=== PATIENT | female | born 1950 ===

== ENCOUNTER 2025-01-23 19:04 | Emergency (ER) | payer MEDICARE, OTHER ==
[2025-01-23] MEDS: Lidocaine 1% 30 ML SDV INJECT ONE (19:58)
[2025-01-23] MEDS: Bacitracin Oint 1 GM U/D Packet TOP ONE (21:25)
[2025-01-23] MEDS: Acetaminophen 500 MG Tab PO ONE (21:25)
[2025-01-23] MEDS: Diphtheria,Pertussis(Acell),Tetanus Vaccine 0.5 ML Syringe IM ONE (22:33)
[2025-01-23 22:37] VITALS: BP 139/75; PULSE 80
== END 2025-01-23 22:03 | disposition hospice, home (50) ==
LOC: DL.ED 19:04
DX: S01.01XA Laceration without foreign body of scalp, initial encounter (principal); S01.81XA Laceration without foreign body of other part of head, initial encounter; S06.30AA Unspecified focal traumatic brain injury with loss of consciousness status unknown, initial encounter; Z88.1 Allergy status to other antibiotic agents; Z88.0 Allergy status to penicillin; Z79.899 Other long term (current) drug therapy; W20.8XXA Other cause of strike by thrown, projected or falling object, initial encounter; Y93.89 Activity, other specified
CPT/HCPCS: 12004; 70450; 72125; 90471; 90715; 99283-25; 99285; A9270-GY; J2003

== ENCOUNTER 2025-01-24 15:14 | Emergency (ER) | payer MEDICARE, OTHER ==
[2025-01-24 15:50] VITALS: BP 129/69; PULSE 77
[2025-01-24] MEDS: Orphenadrine 60 MG/2 ML Inj IM ONE (16:12)
[2025-01-24] MEDS: Ketorolac 30 MG/ML SDV IM ONE (16:13)
== END 2025-01-24 16:24 | disposition home or self-care (01) ==
LOC: DL.ED 15:14
DX: S06.0X0A Concussion without loss of consciousness, initial encounter (principal); S06.5X0S Traumatic subdural hemorrhage without loss of consciousness, sequela; S09.90XS Unspecified injury of head, sequela; G44.319 Acute post-traumatic headache, not intractable; Z88.0 Allergy status to penicillin; Z88.1 Allergy status to other antibiotic agents; Z79.899 Other long term (current) drug therapy; W01.198A Fall on same level from slipping, tripping and stumbling with subsequent striking against other object, initial encounter
CPT/HCPCS: 70450; 96372; 99284; J1885; J2360